=== PATIENT | male | born 1960 | race Caucasian/White ===

== ENCOUNTER 2017-01-22 20:42 | Outpatient (CLI) | payer BC ==
[~2017-01-22 20:42] MED LIST: CND32T PO; HYDRODIURIL PO; METO100T6 PO; POTA20TA7 PO; ROPI1TAB40 PO; SIMV10TA PO
== END 2017-01-23 05:55 | disposition home or self-care (01) ==
LOC: SLEEP 20:42
PROVIDERS: ATTEND Nurse Practitioner Family
DX: R06.83 Snoring (principal); I10 Essential (primary) hypertension; R06.81 Apnea, not elsewhere classified
CPT/HCPCS: 95811

== ENCOUNTER 2022-04-28 13:41 | Emergency (ER) | payer BC ==
[~2022-04-28] VITALS: Ht 173 cm; Wt 91.6 kg
--- NOTE | 2022-04-28 13:53 | ED General ---
General Chief Complaint: Dizziness/Syncope Stated Complaint: SYNCOPE History of Present Illness Date Seen by Provider: Apr 28, 2022 Time Seen by Provider: 13:42 Initial Comments 61 year old male presents via EMS for syncopal episodes. He had s everal episodes over the last few weeks, today it happened and his son called 911. He reports mild pain between shoulder blades. No pain to neck with ROM. No headache or obvious signs of trauma to his head. Reports 50 lb weight loss over the last few months. Changed primary care providers and re-establishing with Dr. Maurer. Patient admits to drinking, whiskey 1 pt or more daily. He reports at least one shot of whiskey. Found to be hypotensive and given 1 L NS, received 650 ml and had slight improvement. Glucose 60s, gave D5 1 amp and improved to 260s. No hx of diabetes. Timing/Duration: Getting Worse, Intermittent Severity: Mild Associated Systoms: No Chest Pain, No Cough, No Fever/Chills, No Headaches; Loss of Appetite, Malaise; No Nausea/Vomiting; Syncope; No Weakness Allergies and Home Medications Allergies Coded Allergies: No Known Drug Allergies (Unverified , 08/11/14) Patient Home Medication List Home Medication List Reviewed: Yes Candesartan Cilexetil (Atacand) 32 Mg Tablet, 1 EACH PO DAILY, (Reported) Entered as Reported by: STELLA GILL on 08/11/14740 Metoprolol Succinate (Toprol Xl) 100 Mg Tab.sr.24h, 100 MG PO DAILY, (Reported) Entered as Reported by: STELLA GILL on 08/11/14740 Potassium Chloride (Klor-Con M20) 20 Meq Tab.prt.sr, 20 MEQ PO DAILY, (Reported) Entered as Reported by: STELLA GILL on 08/11/14740 Ropinirole Hcl (Requip) 1 Mg Tablet, 1 MG PO DAILY, (Reported) Entered as Reported by: STELLA GILL on 08/11/14740 Simvastatin (Zocor) 10 Mg Tablet, 10 MG PO DAILY, (Reported) Entered as Reported by: STELLA GILL on 08/11/14740 [Hydrodiuril] , 25 MG PO, (Reported) Entered as Reported by: STELLA GILL on 08/11/14740 Review of Systems Review of Systems Constitutional: see HPI, weakness EENTM: see HPI, no symptoms reported Respiratory: no symptoms reported, see HPI Cardiovascular: no symptoms reported, see HPI Gastrointestinal: see HPI, loss of appetite All Other Systems Reviewed Negative Unless Noted: Yes Past Mhywdad-Dxwkor-Gtfhhj Hx Family Medical History Reviewed Nursing Family Hx Physical Exam Vital Signs Vital Signs - First Documented 04/28/22 13:42 Temp 36.7 Pulse 76 Resp 16 B/P (MAP) 109/73 (85) Capillary Refill : Height, Weight, BMI Height: 5'8.00" Weight: 247lbs. oz. [phone]; BMI Method: General Appearance: No Apparent Distress, WD/WN HEENT: PERRL/EOMI, TMs Normal, Normal ENT Inspection, Pharynx Normal Neck: Full Range of Motion, Normal Inspection, Non Tender, Supple Respiratory: Chest Non Tender, Lungs Clear, Normal Breath Sounds Cardiovascular: Regular Rate, Rhythm, No Murmur, Normal Peripheral Pulses Gastrointestinal: Normal Bowel Sounds, Non Tender, Soft Extremity: Normal Capillary Refill, Normal Inspection, Normal Range of Motion, No Pedal Edema Neurologic/Psychiatric: Alert, Oriented x3, No Motor/Sensory Deficits, Normal Mood/Affect Skin: Normal Color, Warm/Dry Progress/Results/Core Measures Suspected Sepsis SIRS Temperature: Pulse: Respiratory Rate: Laboratory Tests 04/28/22 13:50: White Blood Count 7.3 Blood Pressure / Mean: Laboratory Tests 04/28/22 13:50: Creatinine 1.38H, Platelet Count 240, Total Bilirubin 0.8 Results/Orders Lab Results Laboratory Tests Test 04/28/22 13:50 04/28/22 15:03 Range/Units White Blood Count 7.3 4.3-11.0 10^3/uL Red Blood Count 3.29 L 4.30-5.52 10^6/uL Hemoglobin 10.8 L 13.3-17.7 g/dL Hematocrit 33 L 40-54 % Mean Corpuscular Volume 100 H 80-99 fL Mean Corpuscular Hemoglobin 33 25-34 pg Mean Corpuscular Hemoglobin Concent 33 32-36 g/dL Red Cell Distribution Width 13.2 10.0-14.5 % Platelet Count 240 130-400 10^3/uL Mean Platelet Volume 10.5 9.0-12.2 fL Immature Granulocyte % (Auto) 1 % Neutrophils (%) (Auto) 55 42-75 % Lymphocytes (%) (Auto) 32 12-44 % Monocytes (%) (Auto) 10 0-12 % Eosinophils (%) (Auto) 2 0-10 % Basophils (%) (Auto) 1 0-10 % Neutrophils # (Auto) 4.0 1.8-7.8 10^3/uL Lymphocytes # (Auto) 2.4 1.0-4.0 10^3/uL Monocytes # (Auto) 0.7 0.0-1.0 10^3/uL Eosinophils # (Auto) 0.1 0.0-0.3 10^3/uL Basophils # (Auto) 0.0 0.0-0.1 10^3/uL Immature Granulocyte # (Auto) 0.1 0.0-0.1 10^3/uL Sodium Level 141 135-145 MMOL/L Potassium Level 3.6 3.6-5.0 MMOL/L Chloride Level 111 H 98-107 MMOL/L Carbon Dioxide Level 13 L 21-32 MMOL/L Anion Gap 17 H 5-14 MMOL/L Blood Urea Nitrogen 24 H 7-18 MG/DL Creatinine 1.38 H 0.60-1.30 MG/DL Estimat Glomerular Filtration Rate 58 BUN/Creatinine Ratio 17 Glucose Level 148 H 70-105 MG/DL Calcium Level 7.9 L 8.5-10.1 MG/DL Corrected Calcium 8.5 8.5-10.1 MG/DL Total Bilirubin 0.8 0.1-1.0 MG/DL Aspartate Amino Transf (AST/SGOT) 269 H 5-34 U/L Alanine Aminotransferase (ALT/SGPT) 186 H 0-55 U/L Alkaline Phosphatase 117 40-136 U/L Troponin I < 0.028 <0.028 NG/ML Total Protein 5.8 L 6.4-8.2 GM/DL Albumin 3.2 3.2-4.5 GM/DL TSH [place] Testing 0.69 0.35-4.94 UIU/ML Serum Alcohol 213 H <10 MG/DL Urine Color ORANGE Urine Clarity CLEAR Urine pH 5.5 5-9 Urine Specific [place] >=1.030 1.016-1.022 Urine Protein 1+ H NEGATIVE Urine Glucose (UA) NEGATIVE NEGATIVE Urine Ketones TRACE H NEGATIVE Urine Nitrite NEGATIVE NEGATIVE Urine Bilirubin 1+ H NEGATIVE Urine Urobilinogen 1.0 < = 1.0 MG/DL Urine Leukocyte Esterase NEGATIVE NEGATIVE Urine RBC (Auto) 2+ H NEGATIVE Urine RBC NONE /HPF Urine WBC 0-2 /HPF Urine Squamous Epithelial Cells 0-2 /HPF Urine Crystals PRESENT H /LPF Urine Calcium Oxalate Crystals LARGE H /LPF Urine Bacteria TRACE /HPF Urine Casts PRESENT /LPF Urine Hyaline Casts >50 H /LPF Urine Mucus NEGATIVE /LPF Urine Culture Indicated NO Urine Opiates Screen NEGATIVE NEGATIVE Urine Oxycodone Screen NEGATIVE NEGATIVE Urine Methadone Screen NEGATIVE NEGATIVE Urine Propoxyphene Screen NEGATIVE NEGATIVE Urine Barbiturates Screen NEGATIVE NEGATIVE Ur Tricyclic Antidepressants Screen NEGATIVE NEGATIVE Urine Phencyclidine Screen NEGATIVE NEGATIVE Urine Amphetamines Screen NEGATIVE NEGATIVE Urine Methamphetamines Screen NEGATIVE NEGATIVE Urine Benzodiazepines Screen NEGATIVE NEGATIVE Urine Cocaine Screen NEGATIVE NEGATIVE Urine Cannabinoids Screen NEGATIVE NEGATIVE My Orders Orders - CHRISTINA PINEDA [employer] Alcohol (04/28/22 13:49) Cbc With Automated Diff (04/28/22 13:49) Comprehensive Metabolic Panel (04/28/22 13:49) Drug Screen Stat (Urine) (04/28/22 13:49) Thyroid Analyzer (04/28/22 13:49) Ua Culture If Indicated (04/28/22 13:49) Ct Head/Cervical Spine Wo (04/28/22 13:49) Ed Iv/Invasive Line Start (04/28/22 13:49) Ns Iv 1000 Ml (Sodium Chloride 0.9%) (04/28/22 14:00) Troponin I [place] (04/28/22 13:53) Chest 1 View, Ap/Pa Only (04/28/22 13:53) Ekg Tracing (04/28/22 13:53) Orthostatic Vital Signs (Adult (04/28/22 14:25) Vital Signs/I&O 04/28/22 04/28/22 04/28/22 13:42 14:27 15:45 Temp 36.7 36.7 Pulse 76 74 78 83 74 Resp 16 16 B/P (MAP) 109/73 (85) 86/65 (72) 119/71 100/68 (79) 95/64 (74) Capillary Refill : Progress Note : Time: 13:42 Progress Note Patient seen and evaluated, will obtain CT of the head and neck, labs in 1 L normal saline. 1430 CT head and neck neg. Awaiting Labs. 1510 spoke to patient and son, hgb 10.8, last lab here was in 2007. [facility] weeks, but he isn't sure of the results. AST and ALT elevated. Last colonoscopy at age 54 and was told to wait until 64 to repeat. Patient denies blood in stool or urine. Orthostatic B/P no significant change. Patient reports to be feeling better. Denies hx of kidney stones or any back pain. Patient agreeable to restrain from using his motorcycle or driving until his symptoms improve. He plans to reestablish care with Dr. Maurer. Needs a full work-up and repeat labs. Will hold metoprolol at this time due to hypotension and syncopal events. Discharge instructions and return precautions reviewed with the patient and son. He is agreeable to eating small frequent meals or drinking protein shakes if he is not hungry. ECG Initial ECG Impression Date: Apr 28, 2022 Initial ECG Impression Time: 13:56 Initial ECG Rate: 62 Initial ECG Rhythm: Normal Sinus Initial ECG Intervals: Normal Initial ECG Intervals MS 214, QRS D 106, QT 431, QTc 448. Allen P 83, RR 31, T 24. Initial ECG Impression: Normal Initial ECG Comparisson: No Previous ECG Available Diagnostic Imaging [facility]: Xray Plain Films/CT/US/NM/MRI: chest Comments NAME: BALBIRPresleyANDREW MED REC#: [id number] PT STATUS: REG ER : 1960 PHYSICIAN: CHRISTINA PINEDA ADMIT DATE: 04/28/22/ER Draft Date of Exam:04/28/22 CHEST 1 VIEW, AP/PA ONLY INDICATION: Chest pain. COMPARISON: I have no priors. FINDINGS: The lungs are clear. There is no failure, effusion, or pneumothorax. IMPRESSION: Negative. Dictated on workstation # [id number] Dict: 04/28/22 1421 Trans: 04/28/22 1424 [id number] Interpreted by: ZACK RAY Electronically signed by: [facility]: CT Comments NAME: ANDREW FORRESTER MED REC#: [id number] PT STATUS: REG ER : 1960 PHYSICIAN: CHRISTINA PINEDA ADMIT DATE: 04/28/22/ER Signed Date of Exam:04/28/22 CT HEAD/CERVICAL SPINE WO PROCEDURE: CT head and CT cervical spine without contrast. TECHNIQUE: Multiple contiguous axial images were obtained through the brain and cervical spine without the use of intravenous contrast. Sagittal and coronal reformations through the cervical spine were then performed. Auto Exposure Controls were utilized during the CT exam to meet ALARA standards for radiation dose reduction. INDICATION: Head and neck trauma. COMPARISON: None available. FINDINGS: Head: No hyperdense hemorrhage or space-occupying mass. No hydrocephalus or midline shift. No evidence of territorial infarct. Basilar cisterns are patent. No focal scalp swelling. No skull fracture. Mild mucosal thickening in the bilateral maxillary sinus. Other paranasal sinuses are clear. Mastoid air cells are also clear. Cervical spine: No acute fracture or traumatic malalignment. No high-grade spinal canal narrowing. Airway is patent. No cervical lymphadenopathy. Visualized thyroid is normal. IMPRESSION: 1. No acute intracranial process or skull fracture. 2. No acute fracture or traumatic malalignment of the cervical spine. Dictated by: Dictated on workstation # [id number] Dict: 04/28/22 1414 Trans: 04/28/22 1417 [facility] [id number] Interpreted by: MARIAM OROZCO MD Electronically signed by: MARIAM OROZCO MD 04/28/221416 Reviewed: Reviewed by Ia Departure Impression Primary Impression: Syncope Qualified Codes: R55 - Syncope and collapse Additional Impression: Alcohol abuse Disposition: 01 HOME, SELF-CARE Condition: Improved Departure-Patient Inst. Decision time for Depature: 15:10 Referrals: ARNULFO MAURER MD (PCP/Family) Primary Care Physician Patient Instructions: Syncope (Fainting) (DC) Add. Discharge Instructions: Increase food intake, take Ensure or other protein shakes, if not appetite to eat. Take a multi vitamin daily. Stop the Metoprolol until you see Dr. Maurer. Schedule appt with Dr. Maurer, to re-establish care. No driving your motorcycle, until fainting episodes improve. Increase water intake. Move slowly from sitting to standing from lying. Strain urine for the next week. Return to Emergency Dept for new, urgent health care meetings. All discharge instructions reviewed with patient and/or family. Voiced understanding. CHRISTINA PINEDA Apr 28, 2022 13:53
[2022-04-28] MEDS ORDERED: NS IV 1000 ML 1,000 ML IV SCH (14:00)
[2022-04-28 14:03] LABS: BASOPHILS % (AUTO) 1 % (0-10); EOSINOPHILS # (AUTO) 0.1 10^3/uL (0.0-0.3); EOSINOPHILS % (AUTO) 2 % (0-10); HEMATOCRIT 33 % (40-54); HEMOGLOBIN 10.8 g/dL (13.3-17.7); LYMPHOCYTES # (AUTO) 2.4 10^3/uL (1.0-4.0); LYMPHOCYTES % (AUTO) 32 % (12-44); MEAN CORPUSCULAR HEMOGLOBIN 33 pg (25-34); MEAN CORPUSCULAR HGB CONC 33 g/dL (32-36); MEAN CORPUSCULAR VOLUME 100 fL (80-99); MEAN PLATELET VOLUME 10.5 fL (9.0-12.2); MONOCYTES # (AUTO) 0.7 10^3/uL (0.0-1.0); MONOCYTES % (AUTO) 10 % (0-12); NEUTROPHILS % (AUTO) 55 % (42-75); PLATELET COUNT 240 10^3/uL (130-400); WHITE BLOOD COUNT 7.3 10^3/uL (4.3-11.0)
[2022-04-28 14:17] LABS: ALBUMIN 3.2 GM/DL (3.2-4.5); POTASSIUM 3.6 MMOL/L (3.6-5.0)
[2022-04-28 14:18] LABS: CALCIUM 7.9 MG/DL (8.5-10.1)
--- NOTE | 2022-04-28 14:18 | Diagnostic Imaging Report ---
PROCEDURE: CT head and CT cervical spine without contrast. TECHNIQUE: Multiple contiguous axial images were obtained through the brain and cervical spine without the use of intravenous contrast. Sagittal and coronal reformations through the cervical spine were then performed. Auto Exposure Controls were utilized during the CT exam to meet ALARA standards for radiation dose reduction. INDICATION: Head and neck trauma. COMPARISON: None available. FINDINGS: Head: No hyperdense hemorrhage or space-occupying mass. No hydrocephalus or midline shift. No evidence of territorial infarct. Basilar cisterns are patent. No focal scalp swelling. No skull fracture. Mild mucosal thickening in the bilateral maxillary sinus. Other paranasal sinuses are clear. Mastoid air cells are also clear. Cervical spine: No acute fracture or traumatic malalignment. No high-grade spinal canal narrowing. Airway is patent. No cervical lymphadenopathy. Visualized thyroid is normal. IMPRESSION: 1. No acute intracranial process or skull fracture. 2. No acute fracture or traumatic malalignment of the cervical spine. Dictated by: Dictated on workstation # [id number]
[2022-04-28 14:20] LABS: TOTAL PROTEIN 5.8 GM/DL (6.4-8.2)
[2022-04-28 14:21] LABS: BILIRUBIN,TOTAL 0.8 MG/DL (0.1-1.0)
[2022-04-28 14:23] LABS: CREATININE SERUM 1.38 MG/DL (0.60-1.30)
--- NOTE | 2022-04-28 14:24 | Diagnostic Imaging Report ---
INDICATION: Chest pain. COMPARISON: I have no priors. FINDINGS: The lungs are clear. There is no failure, effusion, or pneumothorax. IMPRESSION: Negative. Dictated by: Dictated on workstation # [id number]
[2022-04-28 14:27] VITALS: BP_SYST 100; BP_SYST 86; BP_SYST 95; BP_DIAS 64; BP_DIAS 65; BP_DIAS 68
[2022-04-28 14:46] LABS: TSH (THYROID ANALYZER) 0.69 UIU/ML (0.35-4.94)
[2022-04-28 15:13] LABS: CLARITY,URINE CLEAR; COLOR,URINE ORANGE; GLUCOSE, URINE (UA) NEGATIVE (NEGATIVE); KETONES,URINE TRACE (NEGATIVE); LEUKOCYTE ESTERASE ,URINE NEGATIVE (NEGATIVE); NITRITE,URINE NEGATIVE (NEGATIVE); PH,URINE 5.5 (5-9); PROTEIN,URINE 1+ (NEGATIVE)
[2022-04-28 15:26] LABS: BACTERIA,URINE TRACE /HPF; BILIRUBIN,URINE 1+ (NEGATIVE); CALCIUM OXALATE CRYSTALS,UR LARGE /LPF; HYALINE CASTS, URINE >50 /LPF; SQUAMOUS EPITHELIAL CELL,UR 0-2 /HPF; WBC,URINE 0-2 /HPF
[2022-04-28 15:27] LABS: AMPHETAMINE SCREEN, URINE NEGATIVE (NEGATIVE); BARBITURATE SCREEN URINE NEGATIVE (NEGATIVE); BENZODIAZEPINES SCREEN URINE NEGATIVE (NEGATIVE); CANNABINOID SCREEN, URINE NEGATIVE (NEGATIVE); COCAINE SCREEN URINE NEGATIVE (NEGATIVE); METHADONE STAT NEGATIVE (NEGATIVE); OPIATE SCREEN URINE NEGATIVE (NEGATIVE); OXYCODONE STAT NEGATIVE (NEGATIVE); PROPOXYPHENE STAT NEGATIVE (NEGATIVE); TRICYCLIC ANTIDEPRESSANTS SCRE NEGATIVE (NEGATIVE)
[2022-04-28 15:45] VITALS: BP 119/71
== END 2022-04-28 15:47 | disposition home or self-care (01) ==
LOC: ER 13:41
DX: F10.10 Alcohol abuse, uncomplicated (principal); R55 Syncope and collapse
CPT/HCPCS: 70450; 71045; 72125; 80053; 80306; 81000; 84443; 84484; 85025; G0480; 36415; 80320; 93005